=== PATIENT | male | born 1960 | race Caucasian/White ===

== ENCOUNTER → 2020-02-01 13:14 | Outpatient (BNVA) | payer MEDICAID, SELFPAY | PROVIDERS: Family Provider Family Medicine; PCP Family Medicine; Referring Provider Licensed Practical Nurse; Visit Provider Anesthesiology Pain Medicine | DX: M48.062 Spinal stenosis, lumbar region with neurogenic claudication (principal); Z79.891 Long term (current) use of opiate analgesic | CPT/HCPCS: 99204 ==

== ENCOUNTER → 2020-02-18 13:07 | Outpatient (BNVA) | payer MEDICAID, SELFPAY | PROVIDERS: Family Provider Family Medicine; PCP Family Medicine; Visit Provider Anesthesiology Pain Medicine | DX: M50.020 Cervical disc disorder with myelopathy, mid-cervical region, unspecified level (principal); M51.17 Intervertebral disc disorders with radiculopathy, lumbosacral region; M48.062 Spinal stenosis, lumbar region with neurogenic claudication; Z79.891 Long term (current) use of opiate analgesic | CPT/HCPCS: 62323; J1040; J2001; J3490 ==

== ENCOUNTER 2020-02-25 08:32 | Outpatient (CLI) | payer MEDICAID, SELFPAY ==
--- NOTE | 2020-02-25 09:00 | IR_ITS ---
WS: [id number] CERVICAL AND LUMBAR MYELOGRAMs HISTORY: Neck pain COMPARISON: None available. FLUOROSCOPY TIME: 1.2 minutes. Procedure, risks and complications were explained to the patient. Risks including bleeding, infection , headaches, allergic reaction and seizures. Consent has been obtained. With the patient in prone position the skin over the lumbar region is cleansed with ChloraPrep and an esthetized with lidocaine. 22-gauge spinal needle is inserted into the thecal sac at the appropriate level determined by fluoroscopy. Omnipaque 300; 12 ml is injected slowly under fluoroscopy with no co mplications. Needle bevel is perpendicular to the longitudinal fibers of the dura. Stylet is reinsert ed prior to removal of the needle. Patient tolerated the procedure well. Patient will proceed to CT f or further evaluation. Uncomplicated injection into the lumbar spine at the L2-3 level. Good distention of the cervical canal with contrast. Straightening of the normal lordosis. Small oste ophytes throughout the cervical spine with moderate disc space narrowing at C6-7. Anterior osteophyte s are incomplete. There is very slight reversal of the upper cervical spine. During flexion less than 2 mm anterolisthesis of C4. There is no significant change with extension. Good distention of the thecal sac with contrast in the lumbar spine. There is slight mass effect upon the ventral thecal sac from L2-3 through L4-5. Only mild stenosis. No fractures. Mild straightening of the normal lordosis on neutral imaging. With flexion and extension there is very little movement b ut no instability. IR/IR myelogram spine cervic/lumb IMPRESSION: 1. Uncomplicated cervical and lumbar myelograms. 2. Straightening and slight reversal normal cervical lordosis with no instabil ity. 3. Mild straightening of the normal lumbar lordosis with no instability. 4. Please refer to CT myelogram report of the cervical and lumbar spine for fu rther details.
[2020-02-25] MEDS: iohexol 300 mg/mL 50 mL Btl INTRATHECA (09:44)
--- NOTE | 2020-02-25 11:00 | CT_ITS ---
WS: [id number] CT CERVICAL MYELOGRAM HISTORY: Neck pain Technique: All CT scans at [facility] use at least one of these dose optimization techniq ues: automated exposure control; mA and/or kV adjustment per patient size (includes targeted exams wh ere dose is matched to clinical indication); or iterative reconstruction. DLP: 2075.62 mGy-cm. COMPARISON: 06/10/2019 Good opacification of thecal sac with contrast. Straightening of the normal cervical lordosis. Anterior partially bridging osteophytes at C5 and C6. Mild disc space narrowing at C6-7. No fractures. Craniocervical junction is normal. C1-C2: Normal. C2-C3: Moderate facet joint arthritis on the RIGHT with moderate RIGHT foraminal stenosis. C3-C4: Mild diffuse osteophytic ridging and a central disc protrusion. Very mild contact on the ventr al thecal sac and mild LEFT foraminal narrowing. C4-C5: Mild annular disc bulging and osteophytic ridging. No significant stenosis. C5-C6: Diffuse annular disc bulging and osteophytic ridging. Osteophytic ridging is asymmetric to the LEFT. Small central disc protrusion. Mild central and LEFT foraminal stenosis. C6-C7: Moderate diffuse osteophytic ridging and disc disease with encroachment and deformity of the v entral thecal sac. Effacement of CSF. Severe central stenosis with greater encroachment upon the RIGH T lateral cervical cord. Mild LEFT and moderate RIGHT foraminal stenosis. C7-T1: Small vertebral body osteophytes without stenosis. Small cervical chain lymph nodes. CT/CT cervical spine w con [id number] IMPRESSION: 1. Severe central stenosis at C6-7 due to disc disease and osteophytic ridging . Central stenosis asymmetric and greatest to the RIGHT. Moderate RIGHT foramin al stenosis and mild LEFT foraminal stenosis. These findings correspond to the MRI of 06/10/2019. 2. Moderate RIGHT foraminal stenosis at C2-3 due to facet arthritis. 3. Mild central and LEFT foraminal stenosis at C5-6 with a small central disc protrusion.
--- NOTE | 2020-02-25 11:30 | CT_ITS ---
WS: [id number] CT MYELOGRAM LUMBAR SPINE HISTORY: Low back pain TECHNIQUE: Contiguous 2.5 mm axial imaging performed from T12 through the mid sacral level. Bone and soft tissue windows reviewed. Sagittal and coronal reformats are submitted and reviewed. DLP: 1622.[address] scans at [facility] use at least one of these dose optimization techniques: automat ed exposure control; mA and/or kV adjustment per patient size (includes targeted exams where dose is matched to clinical indication); or iterative reconstruction. COMPARISON: MRI 06/10/2019 Normal alignment of the lumbar vertebral bodies. Disc spaces are well preserved. Small endplate osteo phytes at all levels. Conus tapers normally ends near the L1 level. L1-L2: Annular disc bulging with mild osteophytic ridging. No significant stenosis. L2-L3: Moderate diffuse annular disc bulging with ligamentum flavum hypertrophy. Mild encroachment an d narrowing of the central canal. Mild bilateral subarticular recess narrowing without significant fo raminal stenosis. L3-L4: Diffuse moderate annular disc bulging and osteophytic ridging. Ligamentum flavum hypertrophy a nd facet joint arthritis. Deformity of the thecal sac. Moderate central canal stenosis with subarticu lar recess encroachment. Mild to moderate bilateral foraminal stenosis. L4-L5: Moderate diffuse annular disc bulging with facet and ligamentum flavum arthritis. Osteophytic ridging with central disc protrusion. Moderate central and subarticular recess stenosis with mild to moderate bilateral foraminal stenosis. Previously described LEFT paracentral disc protrusion by MRI o f 06/10/2019 has decreased in size. L5-S1: Broad-based disc bulging posteriorly. No significant stenosis. Mild facet joint arthritis. Spi na bifida occulta at S1. Very mild narrowing and degenerative changes throughout the SI joints. No fusion or erosions. CT/CT lumbar spine w con [id number] IMPRESSION: 1. Moderate central and bilateral subarticular recess stenosis at L4-5 with mi ld to moderate bilateral foraminal stenosis. Due to a combination of disc disea se and osteophytosis and facet arthritis. 2. Moderate central canal stenosis with subarticular recess encroachment and m ild to moderate bilateral foraminal stenosis at L3-4. 3. Mild central and bilateral subarticular recess stenosis at L2-3.
== END 2020-02-25 08:33 | disposition home or self-care (01) ==
LOC: RADWPI 08:35
PROVIDERS: Family Provider Family Medicine; PCP Family Medicine; Visit Provider Licensed Practical Nurse
DX: M54.2 Cervicalgia (principal); M48.02 Spinal stenosis, cervical region; M48.061 Spinal stenosis, lumbar region without neurogenic claudication
CPT/HCPCS: 62305; 72040; 72120; 72126; 72132; Q9967

== ENCOUNTER → 2020-03-06 09:56 | Outpatient (BNVA) | payer MEDICAID, SELFPAY | PROVIDERS: Family Provider Family Medicine; PCP Family Medicine; Visit Provider Anesthesiology Pain Medicine | DX: M48.062 Spinal stenosis, lumbar region with neurogenic claudication (principal); Z79.891 Long term (current) use of opiate analgesic | CPT/HCPCS: 99213; 99214 ==

== ENCOUNTER → 2020-03-17 14:48 | Outpatient (BNVA) | payer MEDICAID, SELFPAY | PROVIDERS: Family Provider Family Medicine; PCP Family Medicine; Visit Provider Anesthesiology Pain Medicine | DX: M51.17 Intervertebral disc disorders with radiculopathy, lumbosacral region (principal); M48.062 Spinal stenosis, lumbar region with neurogenic claudication; Z79.891 Long term (current) use of opiate analgesic | CPT/HCPCS: 62323; J1040; J2001; J3490 ==

== ENCOUNTER → 2020-03-31 08:59 | Outpatient (BNVA) | payer MEDICAID, SELFPAY | PROVIDERS: Family Provider Family Medicine; PCP Family Medicine; Visit Provider Anesthesiology Pain Medicine | DX: M54.41 Lumbago with sciatica, right side (principal); M54.42 Lumbago with sciatica, left side; M48.062 Spinal stenosis, lumbar region with neurogenic claudication; M54.2 Cervicalgia; Z79.891 Long term (current) use of opiate analgesic | CPT/HCPCS: 99214 ==

== ENCOUNTER → 2020-04-28 09:09 | Outpatient (BNVA) | payer MEDICAID, SELFPAY | PROVIDERS: Family Provider Family Medicine; PCP Family Medicine; Visit Provider Anesthesiology Pain Medicine | DX: M48.062 Spinal stenosis, lumbar region with neurogenic claudication (principal); M47.816 Spondylosis without myelopathy or radiculopathy, lumbar region; M54.16 Radiculopathy, lumbar region; M48.061 Spinal stenosis, lumbar region without neurogenic claudication; M62.830 Muscle spasm of back; Z79.891 Long term (current) use of opiate analgesic | CPT/HCPCS: 99213 ==

== ENCOUNTER → 2020-05-26 10:16 | Outpatient (BNVA) | payer MEDICAID, SELFPAY | PROVIDERS: Family Provider Family Medicine; PCP Family Medicine; Visit Provider Anesthesiology Pain Medicine | DX: M48.062 Spinal stenosis, lumbar region with neurogenic claudication (principal); M47.816 Spondylosis without myelopathy or radiculopathy, lumbar region; M54.16 Radiculopathy, lumbar region; M48.061 Spinal stenosis, lumbar region without neurogenic claudication; M54.2 Cervicalgia; M62.830 Muscle spasm of back; Z79.891 Long term (current) use of opiate analgesic | CPT/HCPCS: 99213 ==

== ENCOUNTER → 2020-06-09 10:02 | Outpatient (BNVA) | payer MEDICAID, SELFPAY | PROVIDERS: Family Provider Family Medicine; PCP Family Medicine; Visit Provider Anesthesiology Pain Medicine | DX: M48.062 Spinal stenosis, lumbar region with neurogenic claudication (principal); M51.17 Intervertebral disc disorders with radiculopathy, lumbosacral region | CPT/HCPCS: 62323; J1040; J3490 ==

== ENCOUNTER → 2020-06-15 14:49 | Outpatient (BNVA) | payer MEDICAID, SELFPAY | PROVIDERS: Family Provider Family Medicine; PCP Family Medicine; Referring Provider Surgery; Visit Provider Specialist | DX: G37.8 Other specified demyelinating diseases of central nervous system (principal); Z87.891 Personal history of nicotine dependence | CPT/HCPCS: 95909 ==

== ENCOUNTER → 2020-06-22 11:34 | Outpatient (BNVA) | payer MEDICAID, SELFPAY | PROVIDERS: Family Provider Family Medicine; PCP Family Medicine; Visit Provider Anesthesiology Pain Medicine | DX: M54.42 Lumbago with sciatica, left side (principal); M48.062 Spinal stenosis, lumbar region with neurogenic claudication; M47.816 Spondylosis without myelopathy or radiculopathy, lumbar region; M54.16 Radiculopathy, lumbar region; M48.061 Spinal stenosis, lumbar region without neurogenic claudication; M54.2 Cervicalgia; M62.830 Muscle spasm of back; Z79.891 Long term (current) use of opiate analgesic | CPT/HCPCS: 99213 ==

== ENCOUNTER → 2020-06-23 08:52 | Outpatient (BNVA) | payer MEDICAID, SELFPAY | PROVIDERS: Family Provider Family Medicine; PCP Family Medicine; Referring Provider Surgery; Visit Provider Specialist | DX: G62.9 Polyneuropathy, unspecified (principal); M47.816 Spondylosis without myelopathy or radiculopathy, lumbar region; Z87.891 Personal history of nicotine dependence | CPT/HCPCS: 99203 ==

== ENCOUNTER → 2020-08-08 14:21 | Outpatient (BNVA) | payer MEDICAID, SELFPAY | PROVIDERS: Family Provider Family Medicine; PCP Family Medicine; Visit Provider Anesthesiology Pain Medicine | DX: M48.062 Spinal stenosis, lumbar region with neurogenic claudication (principal); M47.816 Spondylosis without myelopathy or radiculopathy, lumbar region; M54.16 Radiculopathy, lumbar region; M48.061 Spinal stenosis, lumbar region without neurogenic claudication; M54.12 Radiculopathy, cervical region; M62.830 Muscle spasm of back; Z79.891 Long term (current) use of opiate analgesic | CPT/HCPCS: 99213; 99214 ==

== ENCOUNTER → 2020-08-18 08:41 | Outpatient (BNVA) | payer MEDICAID, SELFPAY | PROVIDERS: Family Provider Family Medicine; PCP Family Medicine; Referring Provider Anesthesiology Pain Medicine; Visit Provider Orthopaedic Surgery | DX: M48.061 Spinal stenosis, lumbar region without neurogenic claudication (principal); M47.816 Spondylosis without myelopathy or radiculopathy, lumbar region | CPT/HCPCS: 72114 ==

== ENCOUNTER → 2020-09-05 14:41 | Outpatient (BNVA) | payer MEDICAID, SELFPAY | PROVIDERS: Family Provider Family Medicine; PCP Family Medicine; Visit Provider Anesthesiology Pain Medicine | DX: M48.062 Spinal stenosis, lumbar region with neurogenic claudication (principal); M47.816 Spondylosis without myelopathy or radiculopathy, lumbar region; M54.16 Radiculopathy, lumbar region; M48.061 Spinal stenosis, lumbar region without neurogenic claudication; M62.830 Muscle spasm of back; M54.12 Radiculopathy, cervical region; Z79.891 Long term (current) use of opiate analgesic | CPT/HCPCS: 99213 ==

== ENCOUNTER → 2020-09-21 15:49 | Outpatient (BNVA) | payer MEDICAID, SELFPAY | PROVIDERS: PCP Family Medicine; Visit Provider Orthopaedic Surgery | DX: Z01.812 Encounter for preprocedural laboratory examination (principal); Z20.828 Contact with and (suspected) exposure to other viral communicable diseases | CPT/HCPCS: 87635 ==

== ENCOUNTER 2020-09-27 11:42 | Day surgery (SDC) | payer MEDICAID, SELFPAY ==
[2020-09-26 08:45] VITALS: BMI 28.0
[2020-09-27] VITALS (7 sets, daily range): BP systolic 126–168; BP diastolic 71–92; PULSE 54–79; RESP 16–24; TEMP 36.3–36.8; O2SAT 97–100
--- NOTE | 2020-09-27 | SCC_ITS ---
Procedure Done: 1. L3/4 Laminectomy with partial facetectomies 2. L4/5 Laminectomies with partial facetectomies 15.8 seconds of fluoroscopic guidance, for a cumulative dose of 6.60 mGy, was provided to Dr. Galarza by the radiology department. C-arm images of the lumbar spine were saved for the patient's permanent record. [facility]
--- NOTE | 2020-09-27 | XR_ITS ---
WS: [id number] C-ARM RADIOGRAPHS LUMBAR SPINE; 6 IMAGES HISTORY: lumbar spine decompression COMPARISON: 08/18/2020 Intraoperative imaging during spinal decompression. Intraoperative hardware projects over the L4-5 di sc level and posterior to L5. Additional imaging at the L3-4 level. XR/XR lumbar spine 2-3V* [id number] IMPRESSION: Intraoperative imaging during lumbar spine decompression.
[2020-09-27] MEDS: sodium chloride 0.9% 1,000 ML 30 ML IV (12:41)
--- NOTE | 2020-09-27 13:07 | P.ANESASSM_ITS ---
Pre-Anesthetic Assessment Pre-Anesthetic Assessment: Height/Weight: Height 1.85 m Weight 96.615 kg Temp Pulse Resp BP Pulse Ox 97.6 F 54 L 18 126/71 98 09/27/20 12:03 09/27/20 12:03 09/27/20 12:03 09/27/20 12:03 09/27/20 12:03 Preop Diagnosis: lumbar stenosis Proposed Procedure: Operation Date: 09/27/20 13:05 Proposed Procedures p L3/4 L4/5 Lumbar Spine Decompression 07742 21641 M48.062(Not Applicable) - Jin Butt Caron, DO s Lumbar Laminectomy(Not Applicable) - Jin Galarza DO Was Beta Sailaja taken within 24 hours: N/A Last intake: Intake Last Liquid Date 09/26/20 Last Liquid Time 23:50 Last Solid Date 09/26/20 Last Solid Time 23:00 Social: Social History: Tobacco and No alcohol Comment: H/o smoking, quit several years ago Exam: Pre-Anes Outpt Exam: alert, oriented x 3 and regular rate & rhythm Additional Exam Findings (including area of procedure): Decreased BS Airway: Submandibular: WNL Cervical ROM: WNL MP: 2 Dentition: False Pulmonary: Pulmonary: COPD CV/HEM: CV/HEM: None reported : : None reported Hepatic: Hepatic: None reported GI: GI: None reported Metabolic: Metabolic: None reported Musc/skel: Comments: Chronic pain Neuropsych: Neuropsych: None reported Anesthetic Plan: ASA status: 2 Anesthesia: General Risk of > 500 ml blood loss (7ml/kg in children): No Meds/Allergies Current Medications: Current Medications Generic Name Dose Route Start Last Admin Trade Name Freq PRN Reason Stop Dose Admin Sodium Chloride 1,000 mls @ 30 ml s/hr 09/27/20 12:00 09/27/20 12:41 Sodium Chloride 0.9% IV 09/28/20 11:59 30 mls/hr .Q24H MARCO ANTONIO Administration PFSH Anesthesia PFSH: Medical History Cervical disc disorder with myelopathy of mid-cervical region Intervertebral disc disorder with radiculopathy of lumbosacral region Lumbar stenosis with neurogenic claudication Stenosis of cervical spine with myelopathy Surgical History No pertinent past surgical history Family History Father Heart disease Sister Lung disease Social History Smoking and tobacco status: former smoker Alcohol intake: former Household members: spouse Marital status: Current occupational status: disabled History of recent travel: No (travels from [facility]) Data Anesthesia Cardiac Studies: No Data to Display
--- NOTE | 2020-09-27 15:16 | W.PM.OPSUD ---
Surgery/Procedure H&P Update DATE OF PROCEDURE: September 27, 2020 DATE H&P PERFORMED: 09/27/20 PREOP DIAGNOSIS: lumbar stenosis PLANNED PROCEDURE: Operation Date: 09/27/20 13:05 Proposed Procedures p L3/4 L4/5 Lumbar Spine Decompression [id number] M48.062(Not Applicable) - DO iain Dozier Lumbar Laminectomy(Not Applicable) - Jin Galarza DO
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
--- NOTE | 2020-09-27 17:54 | SUR.PHASEI ---
PT SLEEPING QUIETLY WITH ORAL AIRWAY IN PLACE, GOOD RESP DFFORT VSS IV PATENT
--- NOTE | 2020-09-27 17:55 | P.OP_ITS ---
Operative Report Date of procedure: September 27, 2020 Pre-op Diagnosis: lumbar stenosis Post-op diagnosis: same Procedure Done: 1. L3/4 Laminectomy with partial facetectomies 2. L4/5 Laminectomies with partial facetectomies Surgeon: Jin Galarza Anesthesia: General Estimated blood loss (mL): 25 Condition: stable Disposition: PACU Procedure: Patient brought to the OR suite placed in the prone position after undergoing anesthesia. Patient was then prepped and draped normal sterile fashion. Skin was was made over the L3-4 and L4-5 level. Dilators were passed onto the L4 lamina on the left side. Once the to retractor was locked into position soft tissues cleared with Bovie and high-speed bur was used to perform the laminectomy and medial aspect of the facet was taken down with bur Kerrison rongeur was used to finish the laminectomy as well as take down the medial aspect of the superior and inferior to get a process of the facet. Next ligamentum flavum was taken down from L4-L5. The ligament we had significant thickening. Dura was in good repair. Had good pulse. The lateral recess was opened. Next the tube was positioned medially and the remaining lamina on the contralateral side was opened up and a #3 Kerrison was used to open up the lateral recess. Large curette was then used to palpate through the 4 5 foramen palpating the L4 nerve and the L5 nerve as it goes around the L5 pedicle bilaterally. Possibility had adequate decompression of everything then wounds were irrigated. Was brought to the 3 4 level the dilators were passed onto the L3 lamina 2 retractors inserted and docked onto the L3 lamina laminectomy performed using high-speed bur BSP facet was taken down with a high-speed bur Kerrison rongeur was taken down the remaining lamina and the medial aspect of the facet joint was taken down as well. The ligament flavum again was taken down from L3-L4 had significant thickening particularly over the lateral recess area this was all opened up and the L4 nerve root was traced around the L4 pedicle and the L3-4 foramen was palpated tracing the L3 nerve extension was brought to the contralateral lamina again the tube was tilted laminectomies perform using high- speed bur and Kerrison rongeur lamina ligamentum flavum was taken down from L3- L4 in the lateral recess contralateral side was opened up with a Kerrison rongeur and a large curette was then used to palpate opening the the nerves. Wounds were irrigated and wounds were closed with 2-0 Vicryl skin closed 2-0 Vicryl and Monocryl suture glue was placed sterile dressings were applied patient was transferred to the PACU in stable condition.
[2020-09-27] MEDS: HYDROcodone-acetaminophen 5-325 mg Tablet 1 TAB PO (18:26)
--- NOTE | 2020-09-27 19:15 | ANE.PACU2 ---
Inpatient post-anesthesia follow up: Airway intact: Yes Vital signs: Temperature 98 F Pulse Rate 71 Respiratory Rate 16 Blood Pressure 168/91 Pulse Oximetry 97 Oxygen Delivery Me thod Room Air Oxygen Flow Rate 8 Fraction of Inspir ed Oxygen Hydration adequate: Yes Nausea and vomiting: No Pain level: 3 Mental status: Baseline
[2020-09-27] MEDS: HYDROcodone-acetaminophen 5-325 mg Tablet 4 TAB PO (19:23)
== END 2020-09-27 19:10 | disposition home or self-care (01) ==
PROVIDERS: PCP Family Medicine; Visit Provider Orthopaedic Surgery
PROC: (CPT 63005; principal; 2020-09-27 12:50)
PROC: (CPT 63047; 2020-09-27 12:50)
DX: M48.062 Spinal stenosis, lumbar region with neurogenic claudication (principal); J44.9 Chronic obstructive pulmonary disease, unspecified; Z87.891 Personal history of nicotine dependence
CPT/HCPCS: 63047; 63048; 12345; 72100; 76000; J0690; J1100; J2405; J2704; J3490; J7030

== ENCOUNTER → 2020-10-12 14:07 | Outpatient (BNVA) | payer MEDICAID, SELFPAY | PROVIDERS: PCP Family Medicine; Visit Provider Anesthesiology Pain Medicine | DX: M48.062 Spinal stenosis, lumbar region with neurogenic claudication (principal); M47.816 Spondylosis without myelopathy or radiculopathy, lumbar region; M54.16 Radiculopathy, lumbar region; M48.061 Spinal stenosis, lumbar region without neurogenic claudication; M54.12 Radiculopathy, cervical region; M62.830 Muscle spasm of back; Z79.891 Long term (current) use of opiate analgesic | CPT/HCPCS: 99213; 99214 ==

== ENCOUNTER → 2020-11-10 13:01 | Outpatient (BNVA) | payer MEDICAID, SELFPAY | PROVIDERS: PCP Family Medicine; Visit Provider Anesthesiology Pain Medicine | DX: M54.12 Radiculopathy, cervical region (principal); M48.02 Spinal stenosis, cervical region; M50.020 Cervical disc disorder with myelopathy, mid-cervical region, unspecified level; M48.062 Spinal stenosis, lumbar region with neurogenic claudication; M47.816 Spondylosis without myelopathy or radiculopathy, lumbar region; M48.061 Spinal stenosis, lumbar region without neurogenic claudication; M54.16 Radiculopathy, lumbar region; M62.830 Muscle spasm of back; Z79.891 Long term (current) use of opiate analgesic | CPT/HCPCS: 99213 ==

== ENCOUNTER → 2020-12-07 09:25 | Outpatient (BNVA) | payer MEDICAID, SELFPAY | PROVIDERS: PCP Family Medicine; Visit Provider Anesthesiology Pain Medicine | DX: M48.062 Spinal stenosis, lumbar region with neurogenic claudication (principal); M47.816 Spondylosis without myelopathy or radiculopathy, lumbar region; M54.16 Radiculopathy, lumbar region; M48.061 Spinal stenosis, lumbar region without neurogenic claudication; M54.12 Radiculopathy, cervical region; M62.830 Muscle spasm of back; K21.9 Gastro-esophageal reflux disease without esophagitis; Z79.891 Long term (current) use of opiate analgesic | CPT/HCPCS: 99214 ==

== ENCOUNTER → 2020-12-28 10:58 | Outpatient (BNVA) | payer MEDICAID, SELFPAY | PROVIDERS: PCP Family Medicine; Visit Provider Orthopaedic Surgery | DX: M25.569 Pain in unspecified knee (principal) | CPT/HCPCS: 73560; 73565 ==

== ENCOUNTER → 2021-01-04 14:11 | Outpatient (BNVA) | payer MEDICAID, SELFPAY | PROVIDERS: PCP Family Medicine; Visit Provider Anesthesiology Pain Medicine | DX: M54.12 Radiculopathy, cervical region (principal); M48.062 Spinal stenosis, lumbar region with neurogenic claudication; M47.816 Spondylosis without myelopathy or radiculopathy, lumbar region; M54.16 Radiculopathy, lumbar region; M48.061 Spinal stenosis, lumbar region without neurogenic claudication; M62.830 Muscle spasm of back; Z79.891 Long term (current) use of opiate analgesic | CPT/HCPCS: 99214 ==

== ENCOUNTER 2021-02-28 09:07 | Outpatient (CLI) | payer MEDICAID, SELFPAY ==
--- NOTE | 2021-02-28 09:30 | MR_ITS ---
WS: [id number] MRI CERVICAL SPINE NONCONTRAST HISTORY: M48.02 - Spinal stenosis, cervical region COMPARISON: 06/10/[address] 02/25/2020 Technique: Multiplanar, multisequence noncontrast imaging of the cervical spine. Straightening of the normal cervical lordosis. Subtle area of increased T2 signal noted at the C6-7 level of the cervical cord. Abnormal signal exte nds over length of 6 mm. Abnormal signal is new since 06/10/2019. Disc spaces are mildly narrowed and endplate osteophytes and disc bulging at several levels. Cranioce rvical junction is normal. C2-C3: Normal. C3-C4: Bilateral foraminal osteophytes, greatest on the LEFT. There is mild encroachment upon the eva tral thecal sac. Mild central and LEFT foraminal stenosis. C4-C5: Mild osteophytic ridging resulting in mild LEFT foraminal stenosis. No central stenosis. C5-C6: Diffuse annular disc bulging and osteophytic ridging is moderate. Disc osteophyte complexes ex tending into the LEFT foramen. Mild central and moderate to severe LEFT foraminal stenosis. Small hattie tral disc protrusion is also noted. C6-C7: Marked annular disc bulging and osteophytic ridging. Moderate bilateral facet joint arthritis. Severe central and bilateral foraminal stenosis. C7-T1: Normal. Paraspinal soft tissue are normal. Resolved interspinous ligament edema on the RIGHT at C7-T1. MR/MR cervical spin wo con* [id number] IMPRESSION: 1. Severe central and bilateral foraminal stenosis at C6-7 due to disc osteoph yte disease, unchanged. 2. Mild central with moderate to severe LEFT foraminal stenosis at C5-6, uncha nged. 3. Mild LEFT foraminal narrowing at C3-4 and C4-5.
== END 2021-02-28 09:08 | disposition home or self-care (01) ==
LOC: RADSHAW 09:39
PROVIDERS: PCP Family Medicine; Visit Provider Orthopaedic Surgery
DX: M48.062 Spinal stenosis, lumbar region with neurogenic claudication (principal); M50.020 Cervical disc disorder with myelopathy, mid-cervical region, unspecified level; M47.816 Spondylosis without myelopathy or radiculopathy, lumbar region; M48.02 Spinal stenosis, cervical region; M54.16 Radiculopathy, lumbar region; M48.061 Spinal stenosis, lumbar region without neurogenic claudication; M54.12 Radiculopathy, cervical region; M62.830 Muscle spasm of back; Z87.891 Personal history of nicotine dependence
CPT/HCPCS: 72050; 72141; 99215

== ENCOUNTER → 2021-03-29 13:25 | Outpatient (BNVA) | payer MEDICAID, SELFPAY | PROVIDERS: PCP Family Medicine; Visit Provider Anesthesiology Pain Medicine | DX: M48.062 Spinal stenosis, lumbar region with neurogenic claudication (principal); M47.816 Spondylosis without myelopathy or radiculopathy, lumbar region; M54.16 Radiculopathy, lumbar region; M48.061 Spinal stenosis, lumbar region without neurogenic claudication; M54.12 Radiculopathy, cervical region; M62.830 Muscle spasm of back; Z87.891 Personal history of nicotine dependence; Z79.891 Long term (current) use of opiate analgesic | CPT/HCPCS: 99214 ==

== ENCOUNTER → 2021-05-03 14:25 | Outpatient (BNVA) | payer MEDICAID, SELFPAY | PROVIDERS: PCP Family Medicine; Visit Provider Anesthesiology Pain Medicine | DX: M48.062 Spinal stenosis, lumbar region with neurogenic claudication (principal); M47.816 Spondylosis without myelopathy or radiculopathy, lumbar region; M54.16 Radiculopathy, lumbar region; M48.061 Spinal stenosis, lumbar region without neurogenic claudication; M62.830 Muscle spasm of back; M54.12 Radiculopathy, cervical region; M79.605 Pain in left leg; Z79.891 Long term (current) use of opiate analgesic | CPT/HCPCS: 99214 ==

== ENCOUNTER → 2021-05-31 09:19 | Outpatient (BNVA) | payer MEDICAID, SELFPAY | PROVIDERS: PCP Family Medicine; Visit Provider Anesthesiology Pain Medicine | DX: M48.062 Spinal stenosis, lumbar region with neurogenic claudication (principal); M47.816 Spondylosis without myelopathy or radiculopathy, lumbar region; M54.16 Radiculopathy, lumbar region; M48.061 Spinal stenosis, lumbar region without neurogenic claudication; M54.12 Radiculopathy, cervical region; M62.830 Muscle spasm of back; Z79.891 Long term (current) use of opiate analgesic | CPT/HCPCS: 99214 ==

== ENCOUNTER → 2021-06-20 10:03 | Outpatient (BNVA) | payer MEDICAID, SELFPAY | PROVIDERS: PCP Family Medicine; Visit Provider Family Medicine | DX: K40.90 Unilateral inguinal hernia, without obstruction or gangrene, not specified as recurrent (principal); L01.00 Impetigo, unspecified; I10 Essential (primary) hypertension; Z68.27 Body mass index [BMI] 27.0-27.9, adult; M54.16 Radiculopathy, lumbar region; Z13.1 Encounter for screening for diabetes mellitus; Z13.6 Encounter for screening for cardiovascular disorders; Z76.89 Persons encountering health services in other specified circumstances | CPT/HCPCS: 80053; 80061 ==

== ENCOUNTER → 2021-06-28 08:32 | Outpatient (BNVA) | payer MEDICAID, SELFPAY | PROVIDERS: PCP Family Medicine; Visit Provider Anesthesiology Pain Medicine | DX: M48.062 Spinal stenosis, lumbar region with neurogenic claudication (principal); M47.816 Spondylosis without myelopathy or radiculopathy, lumbar region; M54.16 Radiculopathy, lumbar region; M48.061 Spinal stenosis, lumbar region without neurogenic claudication; M54.12 Radiculopathy, cervical region; M25.551 Pain in right hip; M79.605 Pain in left leg; M62.830 Muscle spasm of back; Z79.891 Long term (current) use of opiate analgesic | CPT/HCPCS: 99214 ==

== ENCOUNTER → 2021-07-24 10:31 | Outpatient (BNVA) | payer MEDICAID, SELFPAY | PROVIDERS: PCP Family Medicine; Visit Provider Anesthesiology Pain Medicine | DX: M48.062 Spinal stenosis, lumbar region with neurogenic claudication (principal); M47.816 Spondylosis without myelopathy or radiculopathy, lumbar region; M54.16 Radiculopathy, lumbar region; M48.061 Spinal stenosis, lumbar region without neurogenic claudication; M54.12 Radiculopathy, cervical region; M62.830 Muscle spasm of back; Z79.891 Long term (current) use of opiate analgesic; Z87.891 Personal history of nicotine dependence | CPT/HCPCS: 72050; 99214 ==

== ENCOUNTER → 2021-08-06 10:50 | Outpatient (BNVA) | payer MEDICAID, SELFPAY | PROVIDERS: PCP Family Medicine; Visit Provider Orthopaedic Surgery | DX: M48.02 Spinal stenosis, cervical region (principal); G99.2 Myelopathy in diseases classified elsewhere; Z20.822 Contact with and (suspected) exposure to COVID-19 | CPT/HCPCS: 87635 ==

== ENCOUNTER 2021-08-10 05:41 | Day surgery (SDC) | payer MEDICAID, SELFPAY ==
[2021-08-06 10:07] VITALS: BMI 27.1
--- NOTE | 2021-08-06 10:38 | ANES.PREANE2 ---
Pre-Anesthetic Assessment Pre-Anesthetic Assessment: Height/Weight: Height 1.85 m Weight 93.44 kg Preop Diagnosis: lumbar stenosis Proposed Procedure: Operation Date: 08/10/21 11:00 Proposed Procedures p Anterior Cervical Discectomy & Fusion C5-6 C6-7 04415 08942 74932 M48.02 G99.2(Not Applicable) - Jin Galarza, DO Familial anesthetic complications: none Social: Social History: No alcohol and No tobacco Exam: Pre-Anes Outpt Exam: alert, oriented x 3, clear to auscultation bilaterally and regular rate & rhythm Airway: MP: 1 Dentition: Other (no teeth) Additional comments: bernstein CV/HEM: Comments: denies HTN - states normal at home Anesthetic Plan: ASA status: 2 Anesthesia: General Risk of > 500 ml blood loss (7ml/kg in children): No PFSH Anesthesia PFSH: Medical History Cervical disc disorder with myelopathy of mid-cervical region Intervertebral disc disorder with radiculopathy of lumbosacral region Lumbar stenosis with neurogenic claudication Stenosis of cervical spine with myelopathy Surgical History History of back surgery 2020 Family History Father Heart disease Sister Lung disease Social History Smoking and tobacco status: never smoked Alcohol intake: former Household members: spouse Marital status: Current occupational status: disabled History of recent travel: No Data Anesthesia Cardiac Studies: No Data to Display
[2021-08-10] VITALS (8 sets, daily range): BP systolic 127–159; BP diastolic 59–94; PULSE 57–76; RESP 17–18; TEMP 36.1–36.6; O2SAT 94–97
--- NOTE | 2021-08-10 | XR_ITS ---
WS: [id number] Cervical spine, C-arm fluoroscopy, 08/10/2021 Clinical Data: acdf Comparison: Cervical spine, 07/24/2020 oh Findings: There is an anterior cervical disc fusion at C5-C7. There are disc spacers at C5-C6 and C6- C7. XR/XR cervical spine 3V* [id number] Impression: Anterior cervical disc fusion at C5-C7.
--- NOTE | 2021-08-10 | SCC_ITS ---
Procedure Done: 1. Anterior diskectomy C5/6 2. Anterior discectomy C6/7 3. Insertion of cage C5/6 4. Insertion of Cage C6/7 5. Instrumentation with anterior plate from C5-C7 6. Use of allograft 27.5 seconds of fluoroscopic guidance, for a cumulative dose of 1.83 mGy, was provided to Dr. Galarza by the radiology department. C-arm images of the c spine were saved for the patient's permanent record. [facility]
[2021-08-10] MEDS: sodium chloride 0.9% 1,000 ML 30 ML IV (06:10)
--- NOTE | 2021-08-10 06:52 | W.PM.OPSUD ---
Surgery/Procedure H&P Update DATE OF PROCEDURE: August 10, 2021 DATE H&P PERFORMED: 07/24/21 H&P UPDATE INFORMATION: I have reviewed H&P completed within last 30 days, I have examined patient prior to procedure and No changes to prior documentation PREOP DIAGNOSIS: Cervical radiculopathy PLANNED PROCEDURE: Operation Date: 08/10/21 07:00 Proposed Procedures p Anterior Cervical Discectomy & Fusion C5-6 C6-7 [id number] 76228 M48.02 G99.2(Not Applicable) - Jin Galarza DO
--- NOTE | 2021-08-10 06:57 | P.ANESUD_ITS ---
Pre-Anesthetic Update Pre-Anesthetic Assessment: Date of Surgery/Procedure: 08/10/21 Preop Marlene gnosis: Cervical radiculopathy Proposed Procedure: Operation Date: 08/10/21 07:00 Proposed Procedures p Anterior Cervical Discectomy & Fusion C5-6 C6-7 10288 [id number] 15863 M48.02 G99.2(Not Applicable) - Jin Galarza, DO Any changes to Pre-Anesthetic Assessment?: No Last Intake: Intake Last Liquid Date 08/09/21 Last Liquid Time 22:00 Last Solid Date 08/09/21 Last Solid Time 22:00 Vitals: Temperature 97.3 F L 08/10/21 05:58 Temperature Source Temporal Artery S can 08/10/21 05:58 Pulse Rate 57 L 08/10/21 05:58 Pulse Rhythm 08/10/21 06:00 Pulse Strength 3+ Normal 08/10/21 06:00 Respiratory Rate 18 08/10/21 05:58 Blood Pressure 153/85 08/10/21 05:58 Blood Pressure Lanie n 107 08/10/21 05:58 Pulse Oximetry 97 08/10/21 05:58 Oxygen Delivery Me thod 08/10/21 06:00 Exam: Pre-Anes Outpt Exam: alert, oriented x 3, clear to auscultation bilaterally and regular rate & rhythm Cardiac Studies: No Data to Display
--- NOTE | 2021-08-10 09:18 | P.OP_ITS ---
Operative Report Date of procedure: August 10, 2021 Pre-op Diagnosis: Cervical spondylosis with myelopathy Post-op diagnosis: same Procedure Done: 1. Anterior diskectomy C5/6 2. Anterior discectomy C6/7 3. Insertion of cage C5/6 4. Insertion of Cage C6/7 5. Instrumentation with anterior plate from C5-C7 6. Use of allograft Surgeon: Jin Galarza Decatizer: Jas Mckeon Anesthesia: General Estimated blood loss (mL): 25 Condition: stable Disposition: PACU Procedure: 1. Anterior diskectomy C5/6 2. Anterior discectomy C6/7 3. Insertion of cage C5/6 4. Insertion of Cage C6/7 5. Instrumentation with anterior plate from C5-C7 6. Use of allograft The patient was taken to the operating room, where he underwent general endotracheal anesthesia without complications. He was then positioned supine on the operating table, and all areas of impingement were well padded. The arms were carefully padded and tucked at his sides. A roll was placed between the shoulder blades.. An x-ray was done to determine the appropriate level for the skin incision. The entire neck was then sterilely prepped and draped in the usual fashion. Neuromonitoring was attached prior to prepping. A transverse skin incision was made and carried down to the platysma muscle. This was then split in line with its fibers. Blunt dissection was carried down medial to the carotid sheath and lateral to the trachea and esophagus until the anterior cervical spine was visualized. A needle was placed into a disc and an x-ray was done to determine its location. The longus colli muscles were then elevated bilaterally with the electrocautery unit. Self-retaining retractors were placed deep to the longus colli muscle. Attention was brought to the C5/6 level that was confirmed on x-ray. The disk space was then distracted. The microscope was then brought in. A radical anterior discectomies were performed at C5/6. This included complete removal of the anterior annulus, nucleus, and posterior annulus. The posterior longitudinal ligament was removed as were the posterior osteophytes. Foraminotomies were then accomplished bilaterally. This was done using a high speed cornelia, kerrison rongeurs and curretes Once all of this was accomplished, the curved currette was used to check for any residual compression. The central canal was wide open as were the foramen. A high-speed bur was used to remove the cartilaginous endplates above and below the interspace. Bleeding cancellous bone was exposed. The disc space were measured and appropriate size cage were placed sterilely onto the field. Allograft graft was packed into the cages. The cage was then placed and there was good juxtaposition against the bleeding decorticated surfaces and good distraction of each interspace. Attention was brought to the next interspace. Attention was brought to the C6/7 level that was confirmed on x-ray. The disk space was then distracted. The microscope was then brought in. A radical anterior discectomies were performed at C6/7. This included complete removal of the anterior annulus, nucleus, and posterior annulus. The posterior longitudinal ligament was removed as were the posterior osteophytes. Foraminotomies were then accomplished bilaterally. This was done using a high speed cornelia, kerrison rongeurs and curretes Once all of this was accomplished, the curved currette was used to check for any residual compression. The central canal was wide open as were the foramen. A high-speed bur was used to remove the cartilaginous endplates above and below the interspace. Bleeding cancellous bone was exposed. The disc space were measured and appropriate size cage were placed sterilely onto the field. Allograft graft was packed into the cages. The cage was then placed and there was good juxtaposition against the bleeding decorticated surfaces and good distraction of each interspace. Attention was brought to the next interspace. The Moorcroft pins were removed. Bone wax was used to prevent any bleeding from occurring at the pin sites. The appropriate size anterior cervical locking plate was chosen and bent into gentle lordosis. One screw was then placed into each of the vertebral bodies at C5, C6 and C7. There was excellent purchase. A final x-ray was done confirming good position of the hardware and Cages. The locking screws were then applied, also with excellent purchase. Following a final copious irrigation, there was good hemostasis and no dural leaks. The carotid pulse was strong. The wounds were then closed in layers using 2-0 Vicryl suture for the platysma muscle, 2-0 Vicryl suture for the subcutaneous tissue, and 4-0 monocryl suture in a subcuticular skin closure. Glue was placed followed by application of a sterile dressing. The drain was hooked to bulb suction. A soft collar was applied. The patient was then carefully returned to the supine position on his hospital bed where he was reversed and extubated and taken to the recovery room having tolerated the procedure well.
[2021-08-10] MEDS: fentaNYL 50 mcg/mL INJ 2mL IVP ×2 (09:24→09:29)
--- NOTE | 2021-08-10 17:23 | ANE.PACU2 ---
Inpatient post-anesthesia follow up: Airway intact: Yes Vital signs: Temperature 97 F Pulse Rate 61 Respiratory Rate 18 Blood Pressure 127/59 Pulse Oximetry 94 Oxygen Delivery Me thod Room Air Oxygen Flow Rate Fraction of Inspir ed Oxygen Hydration adequate: Yes Nausea and vomiting: No Pain level: 1 Mental status: Baseline
== END 2021-08-10 10:20 | disposition home or self-care (01) ==
PROVIDERS: PCP Family Medicine; Visit Provider Orthopaedic Surgery
PROC: 0RB30ZZ Excision of Cervical Vertebral Disc, Open Approach (ICD-10-PCS; CPT 22551; principal; 2021-08-10 07:00)
DX: M47.12 Other spondylosis with myelopathy, cervical region (principal)
CPT/HCPCS: 20930; 22551; 22552; 22845; 22853 ×2; 72040; 76000; C1713; C9359; J0330; J0690; J1100; J2405; J2704; J2710; J3010; J3490; J7030

== ENCOUNTER → 2021-09-20 10:32 | Outpatient (BNVA) | payer MEDICAID, SELFPAY | PROVIDERS: PCP Family Medicine; Visit Provider Anesthesiology Pain Medicine | DX: M48.062 Spinal stenosis, lumbar region with neurogenic claudication (principal); Z47.89 Encounter for other orthopedic aftercare; M47.816 Spondylosis without myelopathy or radiculopathy, lumbar region; Z98.890 Other specified postprocedural states; M54.16 Radiculopathy, lumbar region; Z98.1 Arthrodesis status; M48.061 Spinal stenosis, lumbar region without neurogenic claudication; M54.12 Radiculopathy, cervical region; M62.830 Muscle spasm of back; Z79.891 Long term (current) use of opiate analgesic | CPT/HCPCS: 72040; 99213; 99214 ==

== ENCOUNTER → 2021-10-18 10:34 | Outpatient (BNVA) | payer MEDICAID, SELFPAY | PROVIDERS: PCP Family Medicine; Visit Provider Anesthesiology Pain Medicine | DX: G89.29 Other chronic pain (principal); M48.062 Spinal stenosis, lumbar region with neurogenic claudication; M47.816 Spondylosis without myelopathy or radiculopathy, lumbar region; M54.16 Radiculopathy, lumbar region; M48.061 Spinal stenosis, lumbar region without neurogenic claudication; M54.12 Radiculopathy, cervical region; M62.830 Muscle spasm of back; Z79.891 Long term (current) use of opiate analgesic | CPT/HCPCS: 99214 ==

== ENCOUNTER → 2021-11-01 11:16 | Outpatient (BNVA) | payer MEDICAID, SELFPAY | PROVIDERS: PCP Family Medicine; Visit Provider Physician Assistant | DX: Z48.89 Encounter for other specified surgical aftercare (principal); M54.12 Radiculopathy, cervical region; Z98.1 Arthrodesis status | CPT/HCPCS: 72040 ==

== ENCOUNTER → 2021-11-20 08:54 | Outpatient (BNVA) | payer MEDICAID, SELFPAY | PROVIDERS: PCP Family Medicine; Visit Provider Surgery | DX: Z20.822 Contact with and (suspected) exposure to COVID-19 (principal); K42.9 Umbilical hernia without obstruction or gangrene; K40.20 Bilateral inguinal hernia, without obstruction or gangrene, not specified as recurrent | CPT/HCPCS: 87635 ==

== ENCOUNTER 2021-11-22 11:04 | Day surgery (SDC) | payer MEDICAID, SELFPAY ==
[2021-11-21 12:27] VITALS: BMI 26.4
[2021-11-22] VITALS (13 sets, daily range): BP systolic 128–147; BP diastolic 62–83; PULSE 54–76; RESP 18; TEMP 36.1–37.1; O2SAT 96–98
[2021-11-22] MEDS: sodium chloride 0.9% 1,000 ML 30 ML IV (11:02)
--- NOTE | 2021-11-22 11:24 | W.PM.OPSUD ---
Surgery/Procedure H&P Update DATE OF PROCEDURE: November 22, 2021 DATE H&P PERFORMED: 11/20/21 H&P UPDATE INFORMATION: I have reviewed H&P completed within last 30 days, I have examined patient prior to procedure and No changes to prior documentation PREOP DIAGNOSIS: Bilateral inguinal hernia, umbilical hernia PLANNED PROCEDURE: Operation Date: 11/22/21 12:45 Proposed Procedures p Laparoscopic Inguinal Hernia Repair 08497, 01918 k40.90 K42.9(Right) - Praneeth De Jesus MD s Umbilical Hernia Repair(Not Applicable) - Praneeth De Jesus MD
--- NOTE | 2021-11-22 11:33 | ANES.PREANE2 ---
Pre-Anesthetic Assessment Height/Weight: Height 1.85 m Weight 90.718 kg Temp Pulse Resp BP Pulse Ox 97 F L 54 L 18 137/83 98 11/22/21 10:49 11/22/21 10:49 11/22/21 10:49 11/22/21 10:49 11/22/21 10:49 Preop Diagnosis: Bilateral inguinal hernia, umbilical hernia Operation Date: 11/22/21 12:45 Proposed Procedures p Laparoscopic Inguinal Hernia Repair [id number], 17304 k40.90 K42.9(Right) - Praneeth De Jesus MD s Umbilical Hernia Repair(Not Applicable) - Praneeth De Jesus MD Familial anesthetic complications: None Was Beta Sailaja taken within 24 hours: N/A Was Clonidine taken within 24 hours: N/A Last intake: Intake Last Liquid Date 11/21/21 Last Liquid Time 11:30 Last Solid Date 11/21/21 Last Solid Time 11:45 Social No alcohol and No tobacco Exam alert, oriented x 3, clear to auscultation bilaterally and regular rate & rhythm Airway Submandibular: within normal limits Cervical ROM: Other (Limited post surgery) Mallampati: Class II Dentition: false Pulmonary Chronic Obstructive Pulmonary Disease CV/HEM Hypertension GI Gastroesophageal Reflux Disease Musc/skel Lower Back Pain Neuropsych Neuropathy Anesthetic Plan ASA status: 3 Anesthesia: General Risk of > 500 ml blood loss (7ml/kg in children): No Medications/Allergies Home Medications Medication Instructions Recorded Confirmed Last Taken Type cholecalciferol (vitamin D3) 10 10 mcg PO DAILY 09/05/20 11/22/21 1 Day Ago History mcg (400 unit) capsule ~11/21/21 zinc 1 tab PO DAILY 09/26/20 11/22/21 1 Day Ago History ~11/21/21 cod liver oil 1 cap PO DAILY 02/28/21 11/21/21 08/09/21 History diphenhydramine HCl 25 mg capsule 25 mg PO ONCE PRN cap 02/28/21 11/22/21 1 Week Ago History (Benadryl) ~11/15/21 fibro essentials 1 tab PO DAILY 02/28/21 11/22/21 1 Day Ago History ~11/21/21 magnesium 250 mg tablet 250 mg PO DAILY 02/28/21 11/22/21 1 Day Ago History ~11/21/21 gabapentin 600 mg tablet 600 mg PO BID #60 tab MDD 3 10/18/21 11/22/21 11/22/21 06:30 Rx tramadol 50 mg tablet 50 mg PO BID PRN 30 Days #60 tab 10/18/21 11/22/21 11/22/21 06:30 Rx Allergies Allergy/AdvReac Type Severity Reaction Status Date / Time latex Allergy itch/bliste Verified 11/22/21 10:58 r codeine AdvReac nausea Verified 11/22/21 10:58 Current Medications Generic Name Dose Route Start Last Admin Trade Name Freq PRN Reason Stop Dose Admin Sodium Chloride 1,000 mls @ 30 mls/hr 11/22/21 11:00 11/22/21 11:02 Sodium Chloride 0.9% IV 11/23/21 10:59 30 mls/hr .[id number] MARCO ANTONIO Administration PFSH Anesthesia Medical History Cervical disc disorder with myelopathy of mid-cervical region Intervertebral disc disorder with radiculopathy of lumbosacral region Lumbar stenosis with neurogenic claudication Stenosis of cervical spine with myelopathy Surgical History History of back surgery 2020 Family History Father Heart disease Sister Lung disease Social History Smoking and tobacco status: never smoked Alcohol intake: former Household members: spouse Marital status: Current occupational status: disabled History of recent travel: No Data Anesthesia Cardiac Studies: No Data to Display
--- NOTE | 2021-11-22 13:40 | P.OP_ITS ---
Operative Report Date of procedure: November 22, 2021 Pre-op diagnosis: 1. Symptomatic bilateral reducible inguinal hernia 2. Incarcerated umbilical hernia Post-op diagnosis: 1. Bilateral indirect inguinal hernia 2. Incarcerated umbilical hernia measuring 1.5 cm containing omentum Procedure done: 1. Laparoscopic repair of bilateral indirect inguinal hernia with Surgimax 3D mesh 2. Open primary repair of umbilical hernia Pathology: none sent Surgeon: Praneeth De Jesus Anesthesia: General Estimated blood loss (mL): 20 Condition: stable Disposition: PACU Procedure: The patient was taken to the operating room. After IV antibiotic was administered, the abdomen was prepped and draped in a sterile manner. Using a 15 blade, a 1.0 cm transverse incision was made infraumbilically on the () side. Subcutaneous tissue was divided using electrocautery and the anterior rectus sheath divided using an 11 blade. The rectus muscle was retracted laterally and the extraperitoneal space identified. A 11 mm port was placed and 12 mm of pneumoperitoneum was created. A 10 mm 30? scope was introduced and the retrorectus space was opened using the camera up to the pubic symphysis and 5 mm ports were placed in the midline, one 2-fingerbreadths above the pubic symphysis and the other midway between these two ports under direct visualization. Using balloon dissector the preperitoneal space was opened, there was no significant bleeding noted. The pubic symphysis was identified in the midline and the dissection was carried laterally where the iliopubic tract was identified. There was no femoral, obturator or direct hernia noted. The inferior epigastric artery was identified and dissection was carried posterior to it and laterally, the space was opened up to the level of the umbilicus superior to the anterior superior iliac spine on the right side I then proceeded to dissect out the spermatic cord and the indirect hernial sac was reduced . The dissection was carried laterally where the iliopubic tract was identified on the left side. There was no femoral, obturator or direct hernia noted. The inferior epigastric artery was identified and dissection was carried posterior to it and laterally, the space was opened up to the level of the umbilicus superior to the anterior superior iliac spine on the left side I then proceeded to dissect out the spermatic cord and the smaller indirect hernial sac was reduced . 15 x 10cm Ultrapro mesh was rolled and introduced through the 10 mm port and then rolled laterally and apposed well against the abdominal wall to cover the myopectineal orifice completely and secured with Securestraps on the right side. 15 x 10cm Ultrapro mesh was rolled and introduced through the 10 mm port and then rolled laterally and apposed well against the abdominal wall to cover the myopectineal orifice completely and secured with Securestraps on the left side. 10 Cc of 0.5% Marcaine was infiltrated into the preperitoneal space. The extraperitoneal space was desufflated under direct visualization to ensure no slippage of hernial sac under the mesh. All ports were removed under direct visualization. Through the existing infraumbilical curvilinear incision, dissection was carried superiorly using electrocautery and the umbilical hernial sac dissected out using electrocautery and dissection with hemostats. The hernial sac was opened and omentum was reduced into the peritoneal cavity. Interrupted sutures using 0 Vicryl was used to close the hernial defect without any tension. The incision in the anterior rectus sheath was closed using [id number] 0 Vicryl suture. The subcutaneous tissue was approximated using 3-0 Vicryl and skin was closed using running subcuticular 4-0 Monocryl sutures. Dermabond was applied and 10 m L of 0.5% Marcaine was infiltrated around the incision. The patient was extubated and transferred recovery room in stable condition.
[2021-11-22] MEDS: HYDROmorphone 1 mg/mL INJ 1 mL 0.5 MG IVP (14:17)
[2021-11-22] MEDS: HYDROcodone-acetaminophen 5-325 mg Tablet 1 TAB PO (15:15)
== END 2021-11-22 15:39 | disposition home or self-care (01) ==
PROVIDERS: PCP Family Medicine; Visit Provider Surgery
PROC: (CPT 49650; principal; 2021-11-22 12:45)
PROC: (CPT 49505; 2021-11-22 12:45)
DX: K40.20 Bilateral inguinal hernia, without obstruction or gangrene, not specified as recurrent (principal); K42.0 Umbilical hernia with obstruction, without gangrene; J44.9 Chronic obstructive pulmonary disease, unspecified; I10 Essential (primary) hypertension; K21.9 Gastro-esophageal reflux disease without esophagitis; Z82.49 Family history of ischemic heart disease and other diseases of the circulatory system
CPT/HCPCS: 49505; 49587; 36410; C1781; J0360; J0690; J1100; J1170; J1200; J1885; J2270; J2405; J2704; J3010; J3490; J7030

== ENCOUNTER → 2021-12-10 10:33 | Outpatient (BNVA) | payer MEDICAID, SELFPAY | PROVIDERS: PCP Family Medicine; Visit Provider Anesthesiology Pain Medicine | DX: M48.062 Spinal stenosis, lumbar region with neurogenic claudication (principal); M47.816 Spondylosis without myelopathy or radiculopathy, lumbar region; M54.16 Radiculopathy, lumbar region; M48.061 Spinal stenosis, lumbar region without neurogenic claudication; M54.12 Radiculopathy, cervical region; M25.511 Pain in right shoulder; M62.830 Muscle spasm of back; Z87.891 Personal history of nicotine dependence; Z79.891 Long term (current) use of opiate analgesic | CPT/HCPCS: 99214 ==

== ENCOUNTER → 2021-12-20 11:59 | Outpatient (BNVA) | payer MEDICAID, SELFPAY | PROVIDERS: PCP Family Medicine; Visit Provider Physician Assistant | DX: M54.50 Low back pain, unspecified (principal); Z98.1 Arthrodesis status; M47.816 Spondylosis without myelopathy or radiculopathy, lumbar region | CPT/HCPCS: 72050; 72110 ==

== ENCOUNTER → 2022-01-08 09:47 | Outpatient (BNVA) | payer MEDICAID, SELFPAY | PROVIDERS: PCP Family Medicine; Visit Provider Surgery | DX: M54.12 Radiculopathy, cervical region (principal); M25.511 Pain in right shoulder; M48.062 Spinal stenosis, lumbar region with neurogenic claudication; M47.816 Spondylosis without myelopathy or radiculopathy, lumbar region; M54.16 Radiculopathy, lumbar region; M48.061 Spinal stenosis, lumbar region without neurogenic claudication; M79.605 Pain in left leg; M62.830 Muscle spasm of back; Z87.891 Personal history of nicotine dependence; Z79.891 Long term (current) use of opiate analgesic | CPT/HCPCS: 99214 ==

== ENCOUNTER → 2022-02-07 13:35 | Outpatient (BNVA) | payer MEDICAID, SELFPAY | PROVIDERS: PCP Family Medicine; Visit Provider Orthopaedic Surgery | DX: Z47.89 Encounter for other orthopedic aftercare; Z98.890 Other specified postprocedural states; Z98.1 Arthrodesis status | CPT/HCPCS: 72050; 99213 ==

== ENCOUNTER → 2022-03-12 10:15 | Outpatient (BNVA) | payer MEDICAID, SELFPAY | PROVIDERS: PCP Family Medicine; Visit Provider Anesthesiology Pain Medicine | DX: M48.062 Spinal stenosis, lumbar region with neurogenic claudication (principal); M47.816 Spondylosis without myelopathy or radiculopathy, lumbar region; M54.16 Radiculopathy, lumbar region; M48.061 Spinal stenosis, lumbar region without neurogenic claudication; M62.830 Muscle spasm of back; M54.12 Radiculopathy, cervical region; M25.511 Pain in right shoulder; Z87.891 Personal history of nicotine dependence; Z79.891 Long term (current) use of opiate analgesic | CPT/HCPCS: 99214 ==

== ENCOUNTER → 2022-04-15 09:42 | Outpatient (BNVA) | payer MEDICAID, SELFPAY | PROVIDERS: PCP Family Medicine; Visit Provider Anesthesiology Pain Medicine | DX: M48.062 Spinal stenosis, lumbar region with neurogenic claudication (principal); M47.816 Spondylosis without myelopathy or radiculopathy, lumbar region; M54.16 Radiculopathy, lumbar region; M48.061 Spinal stenosis, lumbar region without neurogenic claudication; M62.830 Muscle spasm of back; M54.12 Radiculopathy, cervical region; M25.552 Pain in left hip; M25.511 Pain in right shoulder; Z87.891 Personal history of nicotine dependence; Z79.891 Long term (current) use of opiate analgesic | CPT/HCPCS: 99214 ==

== ENCOUNTER → 2022-05-20 08:35 | Outpatient (BNVA) | payer MEDICAID, SELFPAY | PROVIDERS: PCP Family Medicine; Visit Provider Student in an Organized Health Care Education/Training Program | DX: M67.441 Ganglion, right hand (principal) | CPT/HCPCS: 99203 ==

== ENCOUNTER → 2022-05-20 08:47 | Outpatient (BNVA) | payer MEDICAID, SELFPAY | PROVIDERS: PCP Family Medicine; Visit Provider Student in an Organized Health Care Education/Training Program | DX: M67.441 Ganglion, right hand (principal); M48.062 Spinal stenosis, lumbar region with neurogenic claudication; M47.816 Spondylosis without myelopathy or radiculopathy, lumbar region; M54.16 Radiculopathy, lumbar region; M48.061 Spinal stenosis, lumbar region without neurogenic claudication; M54.12 Radiculopathy, cervical region; M25.511 Pain in right shoulder; M62.830 Muscle spasm of back; Z87.891 Personal history of nicotine dependence; Z79.891 Long term (current) use of opiate analgesic | CPT/HCPCS: 73130; 99214 ==

== ENCOUNTER → 2022-09-17 13:02 | Outpatient (BNVA) | payer MEDICAID, SELFPAY | PROVIDERS: PCP Family Medicine; Visit Provider Student in an Organized Health Care Education/Training Program | DX: M19.011 Primary osteoarthritis, right shoulder (principal) | CPT/HCPCS: 73030; 99213 ==

== ENCOUNTER → 2022-12-16 09:30 | Outpatient (BNVA) | payer MEDICAID, SELFPAY | PROVIDERS: PCP Family Medicine; Visit Provider Student in an Organized Health Care Education/Training Program | DX: M16.12 Unilateral primary osteoarthritis, left hip (principal) | CPT/HCPCS: 73502; 99213 ==

== ENCOUNTER → 2023-02-17 15:08 | Outpatient (BNVA) | payer MEDICAID, SELFPAY | PROVIDERS: PCP Family Medicine; Visit Provider Student in an Organized Health Care Education/Training Program | DX: M16.12 Unilateral primary osteoarthritis, left hip (principal) | CPT/HCPCS: 99213 ==

== ENCOUNTER → 2023-02-20 12:06 | Outpatient (BNVA) | payer MEDICAID, SELFPAY | PROVIDERS: PCP Family Medicine; Visit Provider Student in an Organized Health Care Education/Training Program | DX: M16.12 Unilateral primary osteoarthritis, left hip (principal) | CPT/HCPCS: 20610; 77002; 99214 ==

== ENCOUNTER → 2023-04-10 09:47 | Outpatient (BNVA) | payer MEDICAID, SELFPAY | PROVIDERS: PCP Family Medicine; Visit Provider Student in an Organized Health Care Education/Training Program | DX: M16.12 Unilateral primary osteoarthritis, left hip (principal) | CPT/HCPCS: 99213 ==

== ENCOUNTER → 2023-11-07 08:29 | Outpatient (BNVA) | payer MEDICAID, SELFPAY | PROVIDERS: PCP Physician Assistant; Visit Provider Physician Assistant | DX: M19.011 Primary osteoarthritis, right shoulder (principal); M75.41 Impingement syndrome of right shoulder | CPT/HCPCS: 20610; 73030; 99213; J3301 ==

== ENCOUNTER → 2023-12-05 08:27 | Outpatient (BNVA) | payer MEDICAID, SELFPAY | PROVIDERS: PCP Physician Assistant; Visit Provider Student in an Organized Health Care Education/Training Program | DX: M16.12 Unilateral primary osteoarthritis, left hip (principal) | CPT/HCPCS: 20610; 77002; 99213; J3301 ==

== ENCOUNTER → 2024-01-15 11:29 | Outpatient (BNVA) | payer MEDICAID, SELFPAY | PROVIDERS: PCP Physician Assistant; Visit Provider Podiatrist Foot & Ankle Surgery | DX: M79.671 Pain in right foot (principal); M79.672 Pain in left foot; G57.63 Lesion of plantar nerve, bilateral lower limbs | CPT/HCPCS: 73630; 99203 ==

== ENCOUNTER 2024-01-21 09:55 | Outpatient (CLI) | payer MEDICAID, SELFPAY ==
--- NOTE | 2024-01-21 10:00 | US_ITS ---
WS: [id number] ULTRASOUND SOFT TISSUES bilateral feet HISTORY: evaluate for Angeles's neuroma at 2nd intermetatarsal space COMPARISON: None available. TECHNIQUE: 2-D and color Doppler imaging is submitted. Ultrasound is 30 to the intermetatarsal spaces of each foot. No masses or fluid collection is identif ied. Attention is directed to the second and third intertarsal spaces of each foot.. IMPRESSION: Negative ultrasound bilateral feet.
== END 2024-01-21 09:56 | disposition home or self-care (01) ==
LOC: RAD 09:55
PROVIDERS: PCP Physician Assistant; Visit Provider Podiatrist Foot & Ankle Surgery
DX: M79.671 Pain in right foot (principal); M79.672 Pain in left foot
CPT/HCPCS: 76882

== ENCOUNTER → 2024-01-26 07:20 | Outpatient (BNVA) | payer MEDICAID, SELFPAY | PROVIDERS: PCP Physician Assistant; Visit Provider Podiatrist Foot & Ankle Surgery | DX: G57.63 Lesion of plantar nerve, bilateral lower limbs (principal); M79.671 Pain in right foot; M79.672 Pain in left foot | CPT/HCPCS: 64455; J1100; J3301; J3490 ==

== ENCOUNTER → 2024-01-29 08:01 | Outpatient (BNVA) | payer MEDICAID, SELFPAY | PROVIDERS: PCP Physician Assistant; Visit Provider Physician Assistant | DX: M75.41 Impingement syndrome of right shoulder; M19.011 Primary osteoarthritis, right shoulder | CPT/HCPCS: 99213 ==

== ENCOUNTER → 2024-02-23 10:58 | Outpatient (BNVA) | payer MEDICAID, SELFPAY | PROVIDERS: PCP Physician Assistant; Visit Provider Podiatrist Foot & Ankle Surgery | DX: G57.63 Lesion of plantar nerve, bilateral lower limbs | CPT/HCPCS: 99213 ==

== ENCOUNTER → 2024-03-26 06:50 | Outpatient (BNVA) | payer MEDICAID, SELFPAY | PROVIDERS: PCP Physician Assistant; Visit Provider Student in an Organized Health Care Education/Training Program | DX: M19.011 Primary osteoarthritis, right shoulder | CPT/HCPCS: 20610; 77002; 99213; J3301 ==

== ENCOUNTER → 2024-04-23 06:37 | Outpatient (BNVA) | payer MEDICAID, SELFPAY | PROVIDERS: PCP Physician Assistant; Visit Provider Student in an Organized Health Care Education/Training Program | DX: M16.12 Unilateral primary osteoarthritis, left hip (principal) | CPT/HCPCS: 20610; 77002; 99213; J3301 ==

== ENCOUNTER → 2024-08-02 13:00 | Outpatient (BNVA) | payer MEDICAID, SELFPAY | PROVIDERS: PCP Physician Assistant; Visit Provider Podiatrist Foot & Ankle Surgery | DX: G57.63 Lesion of plantar nerve, bilateral lower limbs (principal); I10 Essential (primary) hypertension | CPT/HCPCS: 99213 ==

== ENCOUNTER → 2024-08-05 09:23 | Outpatient (BNVA) | payer MEDICAID, SELFPAY | PROVIDERS: PCP Physician Assistant; Visit Provider Student in an Organized Health Care Education/Training Program | DX: M16.12 Unilateral primary osteoarthritis, left hip (principal) | CPT/HCPCS: 99213 ==

== ENCOUNTER → 2024-08-12 13:03 | Outpatient (BNVA) | payer MEDICAID, SELFPAY | PROVIDERS: PCP Physician Assistant; Visit Provider Physician Assistant | DX: M16.12 Unilateral primary osteoarthritis, left hip (principal) | CPT/HCPCS: 99213 ==

== ENCOUNTER → 2024-09-10 10:47 | Outpatient (BNVA) | payer MEDICAID, SELFPAY | PROVIDERS: PCP Physician Assistant; Visit Provider Student in an Organized Health Care Education/Training Program | DX: M16.12 Unilateral primary osteoarthritis, left hip (principal); L72.0 Epidermal cyst; D36.14 Benign neoplasm of peripheral nerves and autonomic nervous system of thorax; D22.5 Melanocytic nevi of trunk; L81.4 Other melanin hyperpigmentation; L57.8 Other skin changes due to chronic exposure to nonionizing radiation; L82.1 Other seborrheic keratosis; L57.0 Actinic keratosis | CPT/HCPCS: 17000; 73523; 99203; 99213 ==

== ENCOUNTER → 2025-05-03 12:59 | Outpatient (BNVA) | payer MEDICAID, SELFPAY | PROVIDERS: PCP Physician Assistant; Visit Provider Orthopaedic Surgery | DX: M47.816 Spondylosis without myelopathy or radiculopathy, lumbar region (principal); M48.061 Spinal stenosis, lumbar region without neurogenic claudication | CPT/HCPCS: 72110; 99213 ==

== ENCOUNTER → 2025-05-10 14:21 | Outpatient (BNVA) | payer MEDICAID, SELFPAY | PROVIDERS: PCP Physician Assistant; Visit Provider Surgery | DX: Z12.11 Encounter for screening for malignant neoplasm of colon (principal) | CPT/HCPCS: 99024; 99204 ==

== ENCOUNTER 2025-06-16 08:11 | Day surgery (SDC) | payer MEDICAID, SELFPAY ==
[2025-06-16 08:26] VITALS: BP 158/101; PULSE 66; RESP 18; TEMP 36.6; O2SAT 97
[2025-06-16 08:28] VITALS: BMI 28.8
--- NOTE | 2025-06-16 09:02 | ANES.PREANE2 ---
Pre-Anesthetic Assessment Height/Weight: Height 1.85 m Weight 98.883 kg Temp Pulse Resp BP Pulse Ox O2 Del Method 97.9 F 66 18 158/101 97 Room Air 06/16/25 08:26 06/16/25 08:26 06/16/25 08:26 06/16/25 08:26 06/16/25 08:26 06/16/25 08:26 Preop Diagnosis: screening Operation Date: 06/16/25 09:40 Proposed Procedures p Colonoscopy 41633 G0121 Z12.11(Not Applicable) - Joe Morrow MD Familial anesthetic complications: none Was Beta Sailaja taken within 24 hours: N/A Was Clonidine taken within 24 hours: N/A Last intake: Intake Last Liquid Date 06/15/25 Last Liquid Time 22:30 Last Solid Date 06/14/25 Social No alcohol and No tobacco Exam alert and oriented x 3 Airway Submandibular: within normal limits Cervical ROM: within normal limits Mallampati: Class I Dentition: false History/ROS No significant complaints Pulmonary None reported CV/HEM None reported None reported Hepatic None reported GI None reported Metabolic None reported Musc/skel None reported Neuropsych Neuropathy Anesthetic Plan ASA status: 2 Anesthesia: Anesthesia Evaluation and MAC Risk of > 500 ml blood loss (7ml/kg in children): No Medications/Allergies Home Medications ?Medication ?Instructions ?Recorded ?Confirmed ?Last Taken ?Type gabapentin 600 mg tablet 600 mg PO BID chronic pain #60 05/03/23 06/13/25 06/14/25 Rx tabs Allergies Allergy/AdvReac Type Severity Reaction Status Date / Time latex Allergy itch/bliste Verified 06/16/25 08:25 r codeine AdvReac nausea Verified 06/16/25 08:25 Current Medications Generic Name Dose Route Start Last Admin Trade Name Freq PRN Reason Stop Dose Admin Sodium Chloride 500 mls @ 30 mls/hr 06/16/25 08:15 06/16/25 08:30 Sodium Chloride 0.9% IV 06/17/25 00:54 30 mls/hr .[id number] MARCO ANTONIO Administration PFSH Anesthesia Medical History Primary osteoarthritis, right shoulder Ganglion cyst of joint of finger of right hand Lumbar stenosis with neurogenic claudication Intervertebral disc disorder with radiculopathy of lumbosacral region Stenosis of cervical spine with myelopathy Cervical disc disorder with myelopathy of mid-cervical region Surgical History History of umbilical hernia repair (11/22/21) S/P bilateral inguinal hernia repair (11/22/21) History of back surgery 2020 Family History Father Heart disease Sister Lung disease Social History Smoking and tobacco/nicotine status: former use of tobacco/nicotine Second hand smoke exposure: No Alcohol intake: former Substance/Drug Use: never Household members: spouse Marital status: Current occupational status: disabled
--- NOTE | 2025-06-16 09:07 | W.PM.OPSFHP ---
Same Day Surgery H&P Indication for Procedure/HPI DATE OF PROCEDURE: June 16, 2025 CHIEF COMPLAINT/INDICATIONFOR SURGICAL PROCEDURE: need for screening colonoscopy PREOP DIAGNOSIS: screening PLANNED PROCEDURE: Operation Date: 06/16/25 09:40 Proposed Procedures p Colonoscopy 96180 G0121 Z12.11(Not Applicable) - Joe Morrow MD Medications/Allergies* Allergies/Adverse Reactions Allergy/AdvReac Type Severity Reaction Status Date / Time latex Allergy itch/bliste Verified 06/16/25 08:25 r codeine AdvReac nausea Verified 06/16/25 08:25 Current Medications: Generic Name Dose Route Start Last Admin Trade Name Freq PRN Reason Stop Dose Admin Sodium Chloride 500 mls @ 30 mls/hr 06/16/25 08:15 06/16/25 08:30 Sodium Chloride 0.9% IV 06/17/25 00:54 30 mls/hr .[id number] MARCO ANTONIO Administration Pertinent History/Comorbid Conditions* Medical History (Updated 01/19/24 @ 18:12 by Anton Grimes DPM) Primary osteoarthritis, right shoulder Ganglion cyst of joint of finger of right hand Lumbar stenosis with neurogenic claudication Intervertebral disc disorder with radiculopathy of lumbosacral region Stenosis of cervical spine with myelopathy Cervical disc disorder with myelopathy of mid-cervical region Surgical History (Updated 01/08/22 @ 13:02 by Praneeth De Jesus MD) History of umbilical hernia repair (11/22/21) S/P bilateral inguinal hernia repair (11/22/21) History of back surgery 2019 Family History (Updated 01/10/20 @ 08:06 by Malathi Walton LPN) Heart disease Father Lung disease Sister Social History Smoking and tobacco/nicotine status: former use of tobacco/nicotine Second hand smoke exposure: No Alcohol intake: former Substance/Drug Use: never Household members: spouse Marital status: Current occupational status: disabled Pertinent Exam Findings alert, oriented x 3, clear to auscultation bilaterally and regular rate & rhythm Recommendations Surgery/Procedure today Coding Level of Care Code Acute Code for Chg Fwd
--- NOTE | 2025-06-16 09:19 | PC.NURSE ---
Cecum Time 0973
[2025-06-16 09:36] VITALS: BP 113/67; PULSE 56; RESP 18; TEMP 36.1; O2SAT 97
--- NOTE | 2025-06-16 09:36 | ANE.PACU2 ---
Inpatient post-anesthesia follow up: Airway intact: Yes Vital signs: Temperature 97.9 F Pulse Rate 66 Respiratory Rate 18 Blood Pressure 158/101 Pulse Oximetry 97 Oxygen Delivery Me thod Room Air Oxygen Flow Rate Fraction of Inspir ed Oxygen Hydration adequate: Yes Nausea and vomiting: No Pain level: 1 Mental status: Baseline
[2025-06-16 09:50] VITALS: BP 132/76; PULSE 51; RESP 18; O2SAT 94
--- NOTE | 2025-06-16 13:12 | ANE.PACU2 ---
Inpatient post-anesthesia follow up: Airway intact: Yes Vital signs: Temperature 97.0 F Pulse Rate 51 Respiratory Rate 18 Blood Pressure 132/76 Pulse Oximetry 94 Oxygen Delivery Me thod Room Air Oxygen Flow Rate Fraction of Inspir ed Oxygen Hydration adequate: Yes Nausea and vomiting: No Mental status: Baseline
== END 2025-06-16 10:11 | disposition home or self-care (01) ==
PROVIDERS: PCP Physician Assistant; Visit Provider Surgery
PROC: 0DJD8ZZ Inspection of Lower Intestinal Tract, Via Natural or Artificial Opening Endoscopic (ICD-10-PCS; CPT 45378; principal; 2025-06-16 09:40)
DX: Z12.11 Encounter for screening for malignant neoplasm of colon (principal); D12.3 Benign neoplasm of transverse colon; D12.8 Benign neoplasm of rectum; Z87.891 Personal history of nicotine dependence
CPT/HCPCS: 17000; 45380; 45385; 88305; 99213; J2704; J7040

== ENCOUNTER → 2025-07-06 15:14 | Outpatient (BNVA) | payer MEDICAID, SELFPAY | PROVIDERS: PCP Physician Assistant; Visit Provider Surgery | DX: Z09 Encounter for follow-up examination after completed treatment for conditions other than malignant neoplasm (principal) | CPT/HCPCS: 99213 ==